=== PATIENT | female | born 1980 | race Two or more races ===

== ENCOUNTER → 2024-12-20 | Outpatient (CLI) | payer OTHER, SELFPAY ==
[2024-12-19 15:42] LABS: Basophils % (Auto) 1 % (0-2.5); Eosinophils % (Auto) 0 % (0-10); Hematocrit 34.9 % (36.0-46.0); Hemoglobin 12.1 g/dL (12.0-16.0); Immature Granulocytes % (Auto) 0 % (0-0); Immature Granulocytes Auto 0.01 Thou/mm3 (0.00-0.00); Lymphocytes # (Auto) 1.5 Thou/mm3 (1.0-4.8); Lymphocytes % (Auto) 30 % (10-50); Mean Corpuscular HGB Conc 34.7 g/dl (31.0-37.0); Mean Corpuscular Hemoglobin 32.2 pg (25.0-35.0); Mean Corpuscular Volume 93 fL (80-100); Monocytes # (Auto) 0.3 Thou/mm3 (0.0-0.8); Monocytes % (Auto) 5 % (0-12); Neutrophils # (Auto) 3.2 Thou/mm3 (1.8-7.7); Neutrophils % (Auto) 64 % (37-80); Nucleated Red Blood Cell % 0 /100 WBC (0); Platelet Count 193 Thou/mm3 (140-440); RDW Standard Deviation 46.5 fL (36.4-46.3); Red Blood Count 3.76 Miln/mm3 (4.00-5.20)
[2024-12-19 15:46] LABS: HCG,Qualitative Serum Negative
--- NOTE | 2024-12-20 08:30 | XR_ITS ---
Examination: Stereotactic guided vacuum assisted right breast biopsy with clip placement Date and time of exam:December 20, 2024 1008 hours INDICATIONS: Mammogram July 26, 2024 suspicious microcalcifications upper outer right breast anterior depth Timeout performed, documenting correct patient, order, referring physician, patient's site and reason for procedure, allergies to medications Informed consent provided. Time out performed Technique: Mammographic images demonstrate not enough breast tissue to successfully perform stereotactic breast biopsy IMPRESSION: Recommend needle localization of suspicious microcalcifications right breast and surgical excision
== END | disposition home or self-care (01) ==
LOC: CDIM 12-22 07:26
PROVIDERS: Radiology Diagnostic Radiology; PCP Nurse Practitioner Family; Referring Provider Nurse Practitioner Family; Visit Provider Nurse Practitioner Family
DX: R92.0 Mammographic microcalcification found on diagnostic imaging of breast (principal); Z01.812 Encounter for preprocedural laboratory examination
CPT/HCPCS: 19081; 36415; 84703; 85025; 85610; 85730